=== PATIENT | female | born 1990 | race Caucasian/White ===

== ENCOUNTER → 2018-02-19 | Outpatient (CLI) | payer BC ==
[~2018-02-19] MED LIST: AUGMENTIN 875875 MG PO; ROBITUSSIN AC 110 ML PO
--- NOTE | ~2018-02-19 | EKG ---
[place], [place] ELECTROCARDIOGRAM REPORT NAME: NASIM BRAVO UNIT #: [id number] ROOM: DOCTOR: FLOERNCE DRAFT REPORT BIRTHDATE: [birth year] [facility] Test Date: 2018-02-19 Test Time: 13:12:05 Pat Name: NASIM BRAVO Department: Room: Gender: F In House Counsel: Cara Wilkerson : 1990 Requested By: ABBY ONEILL Order Number: [id number] Reading MD: Ollie Marquez MD Measurements Intervals [place] Rate: 76 P: 72 CA: 118 QRS: 85 QRSD: 77 T: 62 QT: 396 QTc: 446 Interpretive Statements Sinus rhythm Borderline short CA interval RSR' in V1 or V2, probably normal variant No previous ECG available for comparison Electronically Signed On 02-19-2018 14:26:38 PDT by Ollie Marquez MD CM:EKGRPT:ELECTROCARDIOGRAM REPORT [id number] ABBY HENRIQUEZ DRAFT REPORT ABBY ONEILL
--- NOTE | ~2018-02-19 | HM ---
[place], [place] HOLTER MONITOR REPORT [id number] UNIT #: [id number] ROOM: DOCTOR: JAQUELINE TINAJERO MD BIRTHDATE: [birth year] DOS: 02/22/2018 48-HOUR HOLTER MONITOR The test was recorded from 02/19/2018 through 02/21/2018. The recording was analyzed on 02/22/2018 and interpreted at the same date. INDICATIONS: Tachycardia. FINDINGS: The patient's heart rhythm was recorded utilizing a Holter device for 48 hours. The patient was in sinus rhythm throughout. Her average heart rate was 93 with heart rates varying from 56-162 beats per minute in sinus rhythm. Occasional ventricular ectopic beats were seen. There was no ventricular couplets or tachycardia recorded. Frequent premature atrial contractions were noted with occasional brief atrial pauses. The longest pause was 1.9 seconds. The monitor did not record any SVT. No prolonged pauses were seen. The patient returned the diary which stated that she had no symptoms. IMPRESSION: 1. Sinus rhythm with a relatively rapid average heart rate of 93. 2. Occasional isolated PVCs. 3. Frequent PACs with occasional sinus pauses, but no prolonged sinus pause and no symptoms noted. JAQUELINE TINAJERO MD CM:HOLTER:HOLTER MONITOR REPORT [id number] JAQUELINE TINAJERO MD
[2018-02-19 13:32] LABS: BASO % 0.4 % (0.0-1.0); EOS # 0.1 10*3/uL (0.0-0.4); EOS % 1.5 % (1.0-4.0); HEMATOCRIT 38.4 % (37.0-47.0); LYMPH # 2.7 10*3/uL (1.3-4.4); LYMPH % 33.2 % (27.0-41.0); MEAN CELL VOLUME 90.8 fl (81.0-99.0); MEAN CORPUSCULAR HGB 30.7 pg (27.0-31.0); MEAN CORPUSCULAR HGB CONC 33.9 g/dl (33.0-37.0); MEAN PLATELET VOLUME 10.6 fl (9.6-12.3); MONO # 0.6 10*3/uL (0.1-1.0); MONO % 6.8 % (3.0-9.0); NEUT # 4.8 10*3/uL (2.3-7.9); NEUT % 57.9 % (47.0-73.0); PLATELET COUNT AUTOMATED 225 10*3/uL (130-400); RED BLOOD COUNT 4.23 10*6/uL (4.10-5.10); WHITE BLOOD COUNT 8.3 10*3/uL (4.8-10.8)
[2018-02-19 14:02] LABS: ALBUMIN 3.8 gm/dl (3.1-4.5); ALKALINE PHOSPHATASE 36 U/L (45-117); BUN 14 mg/dl (7-24); CHLORIDE 107 mmol/L (98-107); CHOLESTEROL 156 mg/dL (<200); CREATININE 0.78 mg/dL (0.55-1.02); HDL CHOLESTEROL 57 mg/dl (40-60); LDL CHOLESTEROL 85 mg/dL (9-159); POTASSIUM 3.9 mmol/L (3.5-5.1); SGOT/AST 10 IU/L (3-35); SGPT/ALT 14 U/L (12-78); SODIUM 139 mmol/L (136-145); TOTAL PROTEIN 7.6 gm/dL (6.4-8.2); TRIGLYCERIDES 71 mg/dl (<150); VLDL CHOLESTEROL 14 mg/dL (6-40)
== END | disposition home or self-care (01) ==
LOC: CARD 09:00 → LAB 12:51 → CARD 13:00
PROVIDERS: Nurse Practitioner Family
DX: R00.0 Tachycardia, unspecified (principal); F90.9 Attention-deficit hyperactivity disorder, unspecified type

== ENCOUNTER → 2018-08-19 | Outpatient (CLI) | payer BC | END | disposition home or self-care (01) | LOC: CARD 08-17 13:00 | DX: Z34.91 Encounter for supervision of normal pregnancy, unspecified, first trimester (principal); R06.02 Shortness of breath; R00.0 Tachycardia, unspecified; Z3A.10 10 weeks gestation of pregnancy ==

== ENCOUNTER → 2019-11-03 | Outpatient (CLI) | payer BC ==
[2019-11-03 15:24] LABS: BASO % 0.1 % (0.0-1.0); EOS # 0.1 10*3/uL (0.0-0.4); EOS % 1.7 % (1.0-4.0); HEMATOCRIT 42.2 % (37.0-47.0); LYMPH % 25.1 % (27.0-41.0); MEAN CELL VOLUME 91.3 fl (81.0-99.0); MEAN CORPUSCULAR HGB 29.7 pg (27.0-31.0); MEAN CORPUSCULAR HGB CONC 32.5 g/dl (33.0-37.0); MEAN PLATELET VOLUME 10.4 fl (9.6-12.3); MONO # 0.7 10*3/uL (0.1-1.0); MONO % 8.2 % (3.0-9.0); NEUT # 5.2 10*3/uL (2.3-7.9); NEUT % 64.7 % (47.0-73.0); PLATELET COUNT AUTOMATED 240 10*3/uL (130-400); RED BLOOD COUNT 4.62 10*6/uL (4.10-5.10); RED CELL DISTRI WIDTH 11.9 % (0-14.5); WHITE BLOOD COUNT 8.1 10*3/uL (4.8-10.8)
[2019-11-03 16:15] LABS: BUN 16 mg/dl (7-24); CHLORIDE 107 mmol/L (98-107); CREATININE 0.78 mg/dL (0.55-1.02); SODIUM 140 mmol/L (136-145)
[2019-11-03 16:25] LABS: THYROID STIM HORMONE (HS) 0.847 uIU/ml (0.358-4.75)
== END | disposition home or self-care (01) ==
LOC: LAB 14:32
PROVIDERS: Internal Medicine Cardiovascular Disease
DX: Z86.79 Personal history of other diseases of the circulatory system (principal)